=== PATIENT | female | born 1950 | race Caucasian/White ===

== ENCOUNTER 2019-08-25 10:42 | Inpatient (IN) | payer OTHER ==
[2019-08-12 11:50] LABS: HEMATOCRIT 40.1 % (37.0-47.0); HEMOGLOBIN 13.4 gm/dL (12.0-15.0); MCH 31.4 pg (26.0-34.0); MCHC 33.4 g/dL (28.0-37.0); MCV 93.9 fL (80.0-100.0); RBC 4.27 mil/uL (4.20-5.00); RDW 13.7 % (10.5-14.5); URINE BILIRUBIN NEGATIVE (Negative); URINE BLOOD TRACE (Negative); URINE CLARITY CLEAR; URINE COLOR YELLOW; URINE GLUCOSE-RANDOM* NEGATIVE (Negative); URINE KETONES NEGATIVE (Negative); URINE LEUKOCYTES-REFLEX NEGATIVE (Negative); URINE NITRITE-REFLEX NEGATIVE (Negative); URINE PROTEIN (DIPSTICK) NEGATIVE (Negative); URINE SPECIFIC GRAVITY <= 1.005 (1.005-1.035); URINE UROBILINOGEN 0.2 E.U./dl (0.2-1.0)
[2019-08-12 11:59] LABS: ALBUMIN 4.2 g/dL (3.4-5.0); CALCIUM 9.4 mg/dL (8.5-10.1); CREATININE 0.7 mg/dL (0.6-1.0); POTASSIUM 3.9 mmol/L (3.5-5.1)
[~2019-08-25] VITALS: Ht 165.1 cm; Wt 62.6 kg
--- NOTE | ~2019-08-25 | O ---
[facility] [place] [address] OPERATIVE REPORT Name: LILIA MANRIQUE LISA Room #: 150-7 ADM IN M.R.#: [id number] Admission: 08/25/19 Attend Phys: Enmanuel Melo MD Discharge: Date of : 46 Report #: [id number] THIS REPORT FOR: //name// CC: Thomas Melo DATE OF SERVICE: 08/25/2019 PREOPERATIVE DIAGNOSIS: Bilateral knee osteoarthritis. POSTOPERATIVE DIAGNOSIS: Bilateral knee osteoarthritis. PROCEDURE: Bilateral total knee arthroplasty using Navio robotic assistance. SURGEON: Enmanuel Melo MD. DEPUTY CHIEF SHERIFF: Evita Danielle PA-C. INDICATIONS FOR DEPUTY CHIEF SHERIFF: Throughout the case, extensive retraction and manipulation of the knees were required. This was afforded to me by my quality control assistant. ANESTHESIA: General with bilateral adductor canal blocks. IMPLANTS: For the right side, [employer]hew, 6 narrow Legion cobalt chrome femur, size 5 tibia, size 9 polyethylene, and a 32 patella. For the left with a 6 narrow Legion cobalt chrome posterior stabilized femur, size 5 tibia, size 32 patella, and a size 10 polyethylene. TOURNIQUET TIME: 51 minutes for the right, 54 minutes for the left. ESTIMATED BLOOD LOSS: 50 mL. COMPLICATIONS: None. SPECIMENS: None. CONDITION UPON LEAVING THE OPERATING ROOM: Stable. INDICATIONS FOR PROCEDURE: The patient is a 69-year-old female with bilateral knee osteoarthritis. She had failed conservative measures for this and after discussion with her, she elected for bilateral total knee arthroplasties. DESCRIPTION OF PROCEDURE: Risks, benefits, alternatives, complications were discussed in detail with the patient including but not limited to risk of anesthesia, risk of damage to nerves, arteries, blood vessels, risk for [facility] [address] [place] [address] OPERATIVE REPORT Name: LILIA MANRIQUE [facility] Room #: 150-7 ADM IN M.R.#: [id number] Admission: 08/25/19 Attend Phys: Enmanuel Melo MD Discharge: Date of : 46 Report #: [id number] infection, bleeding, risk for continued knee pain, need for reoperation. Informed consent was obtained from the patient. Bilateral knees were appropriately marked in the preoperative holding area. IV Ancef was given for preoperative antibiotics, bilateral adductor canal blocks were placed by Anesthesia. She was brought to the operating room and placed in supine position on operating room table. LMA anesthesia was induced without complication. Tourniquets were placed on the thighs. Bilateral lower extremities were prepped and draped in normal sterile fashion. Timeout was performed properly identifying the patient and procedure as well as the instrumentation and implants. All in the operating room were in agreement. Following applies to bilateral knees. The leg was exsanguinated, tourniquet was inflated. Tourniquet time was again 51 minutes for the right and 54 minutes for the left. Standard anterior approach to knee was made with 10 blade through the skin. Dissection was taken down sharply to the fascia and deep flaps were developed medially and laterally. Fresh 10 blade was used to make a medial parapatellar arthrotomy and the knee was inspected. There was severe medial compartment osteoarthritis with rqdyeves-[id number] patellofemoral osteoarthritis. It was decided to proceed with total knee arthroplasty. ACL and PCL were removed sharply. Reference pins were placed in the femur and the tibia. The knees were then digitally mapped using the [employer] robotic system. We sized the size 6 femur with size 5 tibia, and a size 11 spacer. After acceptance of the intraoperative plan, the distal femoral cut was made with a Navio lenora. The 4-in-1 distal femoral cutting block was then pinned in place and distal femoral cuts were made. Attention was then turned to the tibia. Remainder of the menisci removed with Bovie cautery. Tibial resection guide was pinned in place using the Navio for placement and tibial resection was made. After this, flexion and extension gaps were checked and found to have good balance in flexion and extension, both medially and laterally. The tibia was then sized, found to be a size 5. A size 5 tibial trial was placed, pinned and punched. A size 6 femoral trial was placed and the box cut was made. This was then trialed with a size 10 polyethylene on the left and a size 9 polyethylene on the right. These were taken through range of motion, found to have good balance in flexion and extension with a millimeter of laxity medially and laterally throughout range of motion. After this, 9 mm was resected from the posterior surface of the patella and a size 32 patellar trial button was placed. Knee was taken through range of motion, found to have good patellar tracking. After this, trial components were removed. Bony ends were thoroughly irrigated with normal saline. Final size 5 tibia, size 6 Legion cobalt chrome narrow posterior stabilized femur and a size 32 patella were cemented in place using standard cementation techniques. While the cement cured, a periarticular injection consisting of morphine, ropivacaine, epinephrine, and Toradol was placed around the knee joint capsule. After the cement cured, tourniquet was deflated. Hemostasis was obtained with Bovie cautery. Final size 10 polyethylene was placed in the left knee, a size 9 polyethylene on the right. A gram of vancomycin was placed deep in the joint and the fascia was closed with [address] [address] OPERATIVE REPORT Name: LILIA MANRIQUE [facility] Room #: 150-7 ADM IN M.R.#: [id number] Admission: 08/25/19 Attend Phys: Enmanuel Melo MD Discharge: Date of : 46 Report #: [id number] Vicryl, skin was closed with 2-0 Vicryl and 3-0 Monocryl. Dermabond and JAMIE dressings were applied. The patient tolerated this procedure well and went to recovery room under care of anesthesia postoperatively. By: [id number] Enmanuel Melo MD /nt
[~2019-08-25 10:42] MED LIST: ALPRAZOLAM1 MG PO; AVASTIN25 MG/1 ML OPHTHALMIC; COUMADIN 3 MG TA3 MG PO; CYMBALTA20 MG PO; LEVO-T50 MCG PO; MOBIC7.5 MG PO; PERCOCET 5-3251 EACH PO; PROZAC 20 MG20 M1 PO; SIMVASTATIN40 MG PO; ZOCOR40 MG PO
[2019-08-25 11:30] VITALS: BP 118/76
[2019-08-25 17:58] VITALS: BP 116/75
[2019-08-25 19:27] VITALS: BP 108/71
[2019-08-26] VITALS: BP 141/58
[2019-08-26 05:00] VITALS: BP 141/58
--- NOTE | 2019-08-26 05:33 | NUR ---
ASSESSMENT COMPLETED. PT IS VERY PLEASANT AND COOPERATIVE. PT IS BED REST AND USING BEDPAN-PT PAIN IS WELL CONTROLLED. POLAR MAGDA IN PLACE.IV FLUIDS AND IV ABTS RUNNING.
[2019-08-26 07:46] VITALS: BP 120/62
[2019-08-26 08:00] LABS: HEMATOCRIT 32.5 % (37.0-47.0); HEMOGLOBIN 10.7 gm/dL (12.0-15.0); MCH 31.6 pg (26.0-34.0); MCHC 32.8 g/dL (28.0-37.0); MCV 96.2 fL (80.0-100.0); RBC 3.38 mil/uL (4.20-5.00); RDW 14.5 % (10.5-14.5); WBC 9.7 thou/uL (4.0-11.0)
--- NOTE | 2019-08-26 08:02 | NUR ---
PT ALERT XS 4. GIVEN PRN PAIN MED HAS THERAPY THIS AM. PT HAD ANDRZEJ TKR HAS SCD'S MONET RANGEL AND ROB MAN. PT IS RETIRED NURSE PLEASANT AND COOPERATIVE WITH CARE.
--- NOTE | 2019-08-26 09:29 | NUR ---
INITIAL ASSESSMENT: Pt evaluated for d/c planning needs. Reviewed chart and spoke with nurse, pt and pt's daughter. Pt is alert and oriented. Pt lives in house with spouse and was independent with ADL's prior to admission to the hospital. Pt has cane, and had home health about 10 years ago. Pt will need walker on d/c from hospital. Contacted [facility] and they will deliver walker to pt prior to d/c. Pt has outpatient PT arranged to begin on Friday. Pt plans on returning home on d/c from hospital. Will remain available to assist as needed.
[2019-08-26] MEDS ORDERED: ASPIR 8181 MG PO (10:45)
[2019-08-26] MEDS ORDERED: NEURONTIN 300300 M1 PO (10:45)
[2019-08-26 13:48] VITALS: BP 120/62
[2019-08-26 15:06] VITALS: BP 120/62
== END 2019-08-26 15:09 | disposition home or self-care (01) | DRG 462 ==
LOC: PRE → TBA 10:42 → 4S 10:42 → PRE 10:43 → 4S 17:44 → PRE 20:34 → ENTRNSPT 08-26 14:40 → EDTRNSPTSTS 08-26 14:57 → 4S 08-26 15:09
PROVIDERS: ADMIT Orthopaedic Surgery
PROC: 0SRD0J9 Replacement of Left Knee Joint with Synthetic Substitute, Cemented, Open Approach (ICD-10-PCS; principal; 2019-08-25)
PROC: 8E0Y0CZ Robotic Assisted Procedure of Lower Extremity, Open Approach (ICD-10-PCS; principal; 2019-08-25)
PROC: 0SRC0J9 Replacement of Right Knee Joint with Synthetic Substitute, Cemented, Open Approach (ICD-10-PCS; principal; 2019-08-25)
DX: M17.0 Bilateral primary osteoarthritis of knee (principal); F41.9 Anxiety disorder, unspecified; F32.9 Major depressive disorder, single episode, unspecified; J30.2 Other seasonal allergic rhinitis; E66.3 Overweight; Z88.8 Allergy status to other drugs, medicaments and biological substances; Z68.23 Body mass index [BMI] 23.0-23.9, adult
CPT/HCPCS: 10102; 50010; 50101; 50415; 50954; 51130; 51225; 51320; 52001; 52282; 53000; 53078; 53364; 54118; 56527; 56528; 57095; 57103; 57110; 57127; 57179; 62110; 62900; 64042; 70005